=== PATIENT | female | born 1975 | race Caucasian/White ===

== ENCOUNTER 2024-07-23 07:50 | Emergency (ER) | payer OTHER, SELFPAY ==
[2024-07-23] MEDS ORDERED: Ibuprofen 800 MG TAB ONE (08:26)
== END 2024-07-23 08:56 | disposition home or self-care (01) ==
LOC: BURERS 07:50
DX: S82.031A Displaced transverse fracture of right patella, initial encounter for closed fracture (principal); W01.0XXA Fall on same level from slipping, tripping and stumbling without subsequent striking against object, initial encounter; Y93.89 Activity, other specified; Y92.89 Other specified places as the place of occurrence of the external cause
CPT/HCPCS: 99283